=== PATIENT | female | born 1995 | race Caucasian/White ===

== ENCOUNTER 2016-11-05 10:18 | Inpatient (IN) | payer OTHER, MEDICAID ==
[2016-11-05] MEDS ORDERED: BUTORPHANOL 1 MG/ML VIAL IV PRN (16:27)
[2016-11-05] MEDS ORDERED: LR 500 ML IV PRN (16:27)
[2016-11-05] MEDS ORDERED: Aluminum;Magnesium;Simethicone 30 ML UDC PO PRN (16:27)
[2016-11-05] MEDS ORDERED: OXYTOCIN 1,000 ML IV SCH (16:27)
[2016-11-05] MEDS ORDERED: FLEET 4.5 OZ ENEMA PR PRN (16:27)
[2016-11-05] MEDS ORDERED: DINOPROSTONE 10 MG VAGINAL INSERT PV ONE (16:27)
[2016-11-05] MEDS ORDERED: SODIUM CHLORIDE 0.9% 3 ML FLUSH FLUSH PRN (16:27)
[2016-11-05] MEDS ORDERED: SODIUM CHLORIDE 0.9% 3 ML FLUSH FLUSH SCH (16:27)
[2016-11-05] MEDS ORDERED: ACETAMINOPHEN 325 MG/TAB TABLET PO PRN (16:27)
[2016-11-05] MEDS: LR 1,000 ML IV SCH ×2 (16:30→20:34)
[2016-11-05 16:49] LABS: AUTOMATED BASOPHIL 1.2 % (0-2); AUTOMATED EOSINOPHIL 0.4 % (0-5); AUTOMATED LYMPH 13.9 % (17-44); AUTOMATED MONOCYTE 8.8 % (3-10); AUTOMATED NEUTROPHIL 75.7 % (45-76); MPV 8.5 fL (7.4-10.4)
[2016-11-05 16:54] VITALS: BMI 30.6
--- NOTE | 2016-11-05 17:09 | HISTPHYS ---
- HISTORY OF PRESENT ILLNESS Age: 21 Estimated Due Date: 10/29/16 Gestational Age: 42 : 2 Para: 0 Patient Presents to:: Labor & Delivery Presents for:: Induction of Labor Current : No Complications, GBS - - REVIEW OF SYSTEMS Reports/Denies: Reports: Movement. Denies: Complaints, Vaginal Bleeding, Contractions, Leaking Fluid Pain: Reports: None - ALLERGIES Allergies Allergy/AdvReac Type Severity Reaction Status Date / Time No Known Allergies Allergy Verified 11/02/16 10:12 - PAST MEDICAL HISTORY Reports: Asthma - PAST SURGICAL HISTORY Reports: Dilation & Curettage, Tonsillectomy - SOCIAL HISTORY Smoking Status: Never smoker Social History: Denies: Alcohol Use - GENITOURINARY HISTORY Gynecologic History: Reports: None HX : 2 Para: 0 Live Deliveries (# of pregnancies resulting in a live ): 0 1 Weeks Gestation: 16 Complications with or Delivery: Reports: Stillbirth/ Demise - PHYSICAL EXAM Vital Signs:: Temperature: 98.7 F (11/05/16 16:55) HR: 93 (11/05/16 16:55) RR: 18 (11/05/16 16:55) BP: 126/76 (11/05/16 16:55) Pulse Ox: () 11/05/16 16:40 GENERAL: Alert, Oriented HEENT: Normal ABDOMEN: Gravid, Non-Distended, Non-Tender, Soft Dilation (cm): 0.5 Effacement (%): 50 Station: -3 Heart Rate: 140's Reactive Membranes: Intact - ASSESSMENT (ACTIVE PROBLEMS) (1) 41 weeks gestation of Acute Z3A.41 - 41 WEEKS GESTATION OF (2) Elective induction of labor planned Acute [id number] - - PLAN Cervidil (placed without incident), High Dose Pitocin (to be started in the AM)
[2016-11-06] MEDS: LR 1,000 ML IV SCH ×2 (04:01→15:30)
[2016-11-06] MEDS ORDERED: LIDOCAINE 1% 30 ML VIAL (PRESERVATIVE FREE) ONE (06:08)
[2016-11-06] MEDS: SODIUM CHLORIDE 0.9% 3 ML FLUSH FLUSH SCH (07:34)
--- NOTE | 2016-11-06 08:46 | OBGYNPROG ---
- Exam Vital Signs: Temperature: 98.2 F (11/06/16 05:49) HR: 82 (11/05/16 22:30) RR: 18 (11/05/16 22:30) BP: 131/66 (11/05/16 22:30) Pulse Ox: () Laboratory Results - last 24 hr 11/05/16 11/05/16 16:40 16:40 WBC 12.0 H RBC 4.32 Hgb 11.6 L Hct 35.7 L MCV 83 MCH 26.9 L MCHC 32.6 L RDW 14.3 Plt Count 254 MPV 8.5 Neut % (Auto) 75.7 Lymph % (Auto) 13.9 L [place] % (Auto) 8.8 Eos % (Auto) 0.4 Baso % (Auto) 1.2 Absolute Neuts (auto) 9.00 H Absolute Lymphs (auto) 1.56 Blood Type O POSITIVE Heart Rate: 145 Reactive Contraction Pattern: Regular Dilation (cm): 1.5 Effacement (%): 50 Station: -3 Membranes: AROM Amniotic Fluid: Clear - Plan Continue Present Management
[2016-11-06] MEDS ORDERED: BUPIVACAINE 0.75%/DEXTROSE 8.25% AMPULE EPI ONE (13:00)
[2016-11-06] MEDS ORDERED: OXYTOCIN 10 UNITS/ML VIAL IM ONE (13:00)
--- NOTE | 2016-11-06 15:19 | OBGYNPROG ---
- Exam Vital Signs: Temperature: 98.6 F (11/06/16 09:46) HR: 82 (11/05/16 22:30) RR: 18 (11/05/16 22:30) BP: 131/66 (11/05/16 22:30) Pulse Ox: () Heart Rate: 145 Reactive Contraction Pattern: Regular Dilation (cm): 3 Effacement (%): 80 Station: -2 - Plan Continue Present Management
[2016-11-06] MEDS ORDERED: LR 1,500 ML IV ONE (17:33)
[2016-11-06] MEDS ORDERED: CEFAZOLIN 1 GM VIAL IV ONE (17:33)
--- NOTE | 2016-11-06 17:37 | OBGYNPROG ---
- Exam Vital Signs: Temperature: 98.6 F (11/06/16 09:46) HR: 82 (11/05/16 22:30) RR: 18 (11/05/16 22:30) BP: 131/66 (11/05/16 22:30) Pulse Ox: () Heart Rate: 145 Reactive Contraction Pattern: Regular Dilation (cm): 3 Effacement (%): 80 Station: -3 - Plan Discussed with patient concern for macrosomia, no cervical change in 5 hours, pitocin and arom . Failure to dilate, options of section vs continuing with induction, failure to descend. Will notify anesthesia and peds, proceed with LTCS.
[2016-11-06] MEDS ORDERED: ONDANSETRON HCL 4 MG/2 ML VIAL IV PRN ×2 (17:40→19:25)
[2016-11-06] MEDS ORDERED: LABETALOL 20 MG/4 ML SYRINGE IV PRN (17:40)
[2016-11-06] MEDS ORDERED: ONDANSETRON HCL 4 MG ODT TAB PO PRN (17:40)
[2016-11-06] MEDS ORDERED: HYDROmorphone 1 MG INJECTION IV PRN ×2 (17:40)
[2016-11-06] MEDS ORDERED: FENTANYL 100 MCG/2 ML VIAL IV PRN ×2 (17:40)
[2016-11-06] MEDS ORDERED: hydrALAZINE 20 MG/ML VIAL IV PRN (17:40)
[2016-11-06] MEDS ORDERED: MEPERIDINE 25 MG/ML TUBEX IV PRN (17:40)
[2016-11-06] MEDS ORDERED: HYDROmorphone 50 ML IV PRN (19:25)
[2016-11-06] MEDS ORDERED: SODIUM CHLORIDE 0.9% 3 ML FLUSH FLUSH PRN (19:25)
[2016-11-06] MEDS ORDERED: LANOLIN OINTMENT 0.25 OZ TUBE TOP PRN (19:25)
[2016-11-06] MEDS ORDERED: OXYCODONE HCL 5 MG TABLET PO PRN ×2 (19:25)
[2016-11-06] MEDS ORDERED: ZOLPIDEM TARTRATE 5 MG TAB PO PRN (19:25)
[2016-11-06] MEDS ORDERED: OXYTOCIN 1,000 ML IV ONE (19:25)
--- NOTE | 2016-11-06 19:28 | OBDELNOTE ---
Delivery Note - Problem/Diagnosis (1) delivery delivered Status: Acute (2) Failed induction of labor Status: Acute (3) Single live Status: Acute - Admitting Diagnosis Reason for Visit: Induction of Labor Other Reason for Visit: cervidil Admission Date: 11/05/16 Admission time: 16:18 Gestational Age: 41 - Procedures Procedure(s): Non-Stress Test Labor Anesthesia/Analgesia: IV Medication, Spinal Anesthesia Date: 11/06/16 Delivery Presentation: Vertex Episiotomy: None Laceration: None : Primary Reason: Failure to Progress, CPD Skin Incision: Pfannenstiel Uterine Incision: Low Transverse EBL: 600 Fluid: Clear Placenta: Manual Removal Description: Normal Cord: 3 Vessels - Data Infant Sex: Female Weight: 4.281 kg (1min): 9 (5min): 9 Feeding Plans for Infant: Breast Plans Circumcision: No [place] Complications: No Complications [place] to:: LDRP/Mother's Room - /Operative Complications /Op Complications: None Hemorrhage: Uterine Atony Discharge Planning - REASON FOR ADMISSION Patient Presents to:: Labor & Delivery Reason for Visit: Induction of Labor Other Reason for Visit: cervidil - DISCHARGE INSTRUCTIONS Referrals: Flor Padilla MD [Staff Physician] - Listed Time Diet at Discharge: As Tolerated Activity: No Restrictions Additional Instructions: Keep next scheduled appointment in office.
--- NOTE | 2016-11-06 19:30 | HIMOPRPT ---
DATE OF PROCEDURE: DATE OF PROCEDURE: 11/06/16 PREOPERATIVE DIAGNOSIS: 1. Intrauterine at 41 weeks. 2. failure to progress. 3. macrosomia. POSTOPERATIVE DIAGNOSIS: 1. Intrauterine at [41 weeks]. 2. failure to progress. 3. macrosomia PROCEDURE: Primary low transverse via Pfannenstiel incision. SURGEON: Flor Padilla MD. ANESTHESIA: [spinal] FINDINGS: Vigorous [female] infant, [9] pounds [7] ounces with Apgars of [9] and [9]. COMPLICATIONS: None. ESTIMATED BLOOD LOSS: 600 mL. URINE OUTPUT: [400] mL of clear urine. PROCEDURE IN DETAIL: The patient was taken to the operating room where anesthesia was adequate at the time of skin check. At this time, a Pfannenstiel incision was made with scalpel carried down to the fascia. The fascia was nicked in midline and the incision extended laterally with Zuleta scissors. The fascia was elevated up, dissected off rectus muscles. Rectus muscles were midline. Peritoneum was identified and entered. Peritoneal incision was extended superiorly and inferiorly with good visualization of bladder. Bladder flap was created with blunt and sharp dissection. The lower uterine segment was incised in transverse fashion with scalpel and extended bluntly. The 's head was delivered atraumatically. The nose and mouth were suctioned with bulb suction. Cord clamped and cut and handed off to awaiting call center operations manager. Placenta was removed. The uterus was exteriorized and cleared of all clots. The uterine incision was closed with #1 chromic and second chromic was used for hemostasis. The uterus was returned to the abdomen and hemostasis was verified. Clots were removed from the gutters. The fascia was closed with 0 PDS. Subcuticular fat was irrigated with saline. Skin was closed with 4-0 monocryl in subcuticular fashion. Dermabond was applied to the skin site. Sponge, laps, and needle counts correct x2. The patient tolerated well. ANESTHESIA: IV Medication Spinal Anesthesia
--- NOTE | 2016-11-06 19:31 | PCM.DCS92 ---
- Primary/Secondary Discharge Diagnoses (1) delivery delivered Acute O82 - ENCOUNTER FOR DELIVERY WITHOUT INDICATION (2) Failed induction of labor Acute O61.9 - FAILED INDUCTION OF LABOR, UNSPECIFIED (3) Single live Acute Z37.0 - SINGLE LIVE (4) macrosomia during , antepartum Acute O36.60X0 - MATERNAL CARE FOR EXCESS GROWTH, UNSP TRIMESTER, UNSP single or unspecified fetus third trimester O36.63X0 - Maternal care for excessive growth, third trimester, not applicable or unspecified - HOSPITAL COURSE /Op Complications: None - DISCHARGE INSTRUCTIONS Discharge Disposition: Home Discharge Condition: Good Cognitive Discharge Status: Unimpaired Fuctional Discharge Status: Independent Patient Leaving with Prescriptions?: Yes Prescriptions: Ibuprofen Tablet [Motrin] 800 mg PO TID #30 tab Oxycodone Immediate Release [Oxycodone Immediate Release Tablet] 5 mg PO Q4H PRN #30 tab PRN Reason: Pain Referrals: Flor Padilla MD [Staff Physician] - Two Weeks - Diet Diet at Discharge: As Tolerated - Activity Activity: No Restrictions, No Heavy Lifting, Pelvic Rest, No Driving No Driving for: 2 weeks - Instructions Call Physician for: Sudden/Sever Chest Pain, Foul Smelling Discharge, Pain/ Redness in Calf/Leg, Temperature Above 100.4, Drainiage from Wound Additional Instructions: Keep next scheduled appointment in office. - DC Summary Notes Discharge Medications: *See "Discharge Medication List" for a complete list of Home Medications and Discharge Medications.* Obstetric Hospital Course - Admitting Diagnosis Reason for Visit: Induction of Labor Other Reason for Visit: cervidil Admission Date: 11/05/16 Admission time: 16:18 Gestational Age: 41 - Procedures Procedure(s): Non-Stress Test Labor Anesthesia/Analgesia: IV Medication, Spinal Anesthesia Date: 11/06/16 Delivery Presentation: Vertex Episiotomy: None Laceration: None : Primary for: Failure to Progress Skin Incision: Pfannenstiel Uterine Incision: Low Transverse EBL: 600 Fluid: Clear Placenta: Manual Removal Description: Normal Cord: 3 Vessels - Infant Data Sex: Female Weight: 4.281 kg (1min): 9 (5min): 9 Feeding Plans for Infant: Breast Plans Circumcision: No [place] Complications: No Complications to:: LDRP/Mother's Room - /Operative Complications /Op Complications: None Hemorrhage: Uterine Atony
[2016-11-06] MEDS ORDERED: Pharmacy Order Set Alert SCH (20:00)
[2016-11-06] MEDS: IBUPROFEN 800 MG TAB PO SCH (21:12)
[2016-11-07] MEDS ORDERED: LR 1,000 ML IV SCH (02:24)
[2016-11-07] MEDS: IBUPROFEN 800 MG TAB PO SCH ×4 (03:26→21:43)
[2016-11-07] MEDS ORDERED: SODIUM CHLORIDE 0.9% 3 ML FLUSH FLUSH SCH (06:00)
[2016-11-07] MEDS: DOCUSATE-SENNA CONCENTRATE TAB PO SCH ×2 (09:53→21:43)
--- NOTE | 2016-11-07 10:39 | OBGYNPROG ---
- Subjective Post Day: 1 Post Op Day: 1 Reports: Ambulating, Out of Bed, Tolerating Regular Diet, Voiding Freely, Light Bleeding. Denies: Complaints Pain: Reports: Well Managed, Incision - Objective Vital Signs: Temperature: 97.9 F (11/07/16 05:56) HR: 86 (11/07/16 05:56) RR: 18 (11/07/16 07:30) BP: 128/59 (11/07/16 05:56) Pulse Ox: 97 (11/06/16 21:36) Laboratory Results - last 24 hr 11/05/16 11/05/16 11/06/16 16:40 16:40 17:33 Hgb Hct RPR Nonreactive Blood Type O POSITIVE Cancelled Antibody Screen Negative Cancelled 11/07/16 07:00 Hgb 9.8 L D Hct 29.2 L RPR Blood Type Antibody Screen General: Alert, Oriented, No Acute Distress HEENT: Normal Cardiovascular/Chest: Normal ABDOMEN: Soft Abdominal Incision: Incision Clean/Dry/Intact MUSCULOSKELETAL: Normal EXTERMITIES: Moves All Extremeties. Denies: Edema OBGYN Progress Note - ASSESSMENT (1) delivery delivered Status: Acute Code(s): O82 - ENCOUNTER FOR DELIVERY WITHOUT INDICATION (2) Failed induction of labor Status: Acute Code(s): O61.9 - FAILED INDUCTION OF LABOR, UNSPECIFIED (3) Single live Status: Acute Code(s): Z37.0 - SINGLE LIVE (4) macrosomia during , antepartum Status: Acute Code(s): O36.60X0 - MATERNAL CARE FOR EXCESS GROWTH, UNSP TRIMESTER, UNSP Qualifiers: Fetus number: single or unspecified fetus Trimester: third trimester Qualified Code(s): O36.63X0 - Maternal care for excessive growth, third trimester, not applicable or unspecified - PLAN Routine Care, Advance Diet, Ambulate, Discontinue Indwelling Catheter , Out of Bed, Discontinue MEDICAL EDITOR, Start PO Meds
[2016-11-08] MEDS: IBUPROFEN 800 MG TAB PO SCH ×2 (02:30→05:45)
[2016-11-08 05:55] VITALS: BP 121/59; PULSE 82; TEMP 97.9
[2016-11-08] MEDS: DOCUSATE-SENNA CONCENTRATE TAB PO SCH (08:54)
--- NOTE | 2016-11-08 10:22 | OBGYNPROG ---
- Subjective Post Day: 2 Post Op Day: 2 Reports: Ambulating, Out of Bed, Tolerating Regular Diet, Voiding Freely, Moderate Lochia. Denies: Complaints Pain: Reports: Well Managed, Incision - Objective Vital Signs: Temperature: 97.9 F (11/08/16 05:54) HR: 82 (11/08/16 05:54) RR: 18 (11/08/16 05:54) BP: 121/59 (11/08/16 05:54) Pulse Ox: 97 (11/06/16 21:36) General: Alert, Oriented, No Acute Distress HEENT: Normal Cardiovascular/Chest: Normal ABDOMEN: Soft Abdominal Incision: Incision Clean/Dry/Intact MUSCULOSKELETAL: Normal EXTERMITIES: Moves All Extremeties. Denies: Edema OBGYN Progress Note - ASSESSMENT (1) delivery delivered Status: Acute Code(s): O82 - ENCOUNTER FOR DELIVERY WITHOUT INDICATION (2) Failed induction of labor Status: Acute Code(s): O61.9 - FAILED INDUCTION OF LABOR, UNSPECIFIED (3) Single live Status: Acute Code(s): Z37.0 - SINGLE LIVE (4) macrosomia during , antepartum Status: Acute Code(s): O36.60X0 - MATERNAL CARE FOR EXCESS GROWTH, UNSP TRIMESTER, UNSP Qualifiers: Fetus number: single or unspecified fetus Trimester: third trimester Qualified Code(s): O36.63X0 - Maternal care for excessive growth, third trimester, not applicable or unspecified - PLAN Routine Care, Discharge
== END 2016-11-08 13:01 | disposition home or self-care (01) | DRG 766 ==
LOC: MASU 16:01
PROVIDERS: ADMIT Obstetrics & Gynecology; ATTEND Obstetrics & Gynecology
PROC: 3E0P7GC Introduction of Other Therapeutic Substance into Female Reproductive, Via Natural or Artificial Opening (ICD-10-PCS; 2016-11-05)
PROC: 3E033VJ Introduction of Other Hormone into Peripheral Vein, Percutaneous Approach (ICD-10-PCS; 2016-11-05)
PROC: 10907ZC Drainage of Amniotic Fluid, Therapeutic from Products of Conception, Via Natural or Artificial Opening (ICD-10-PCS; 2016-11-06)
PROC: 10D00Z1 Extraction of Products of Conception, Low, Open Approach (ICD-10-PCS; principal; 2016-11-06 19:00)
DX: O36.63X0 Maternal care for excessive fetal growth, third trimester, not applicable or unspecified (principal); O61.9 Failed induction of labor, unspecified; O32.4XX0 Maternal care for high head at term, not applicable or unspecified; O62.2 Other uterine inertia; Z3A.41 41 weeks gestation of pregnancy; Z37.0 Single live birth
CPT/HCPCS: 81002; 85014; 85018; 85025; 86592; 86850; 86900; 86901; 96360; 96361; 96365; 96366; 96375; J0595; J0690; J1170; J2001; J2590; J3490; S0020